=== PATIENT | female | born 1995 | race Caucasian/White ===

== ENCOUNTER 2018-09-10 15:25 | Inpatient (IN) | payer MEDICAID ==
[~2018-09-10] VITALS: Ht 157.5 cm; Wt 60.3 kg
[2018-09-10] MEDS ORDERED: LACTATED RINGERS 1,000 ML IV SCH ×2 (18:26→19:00)
[2018-09-10] MEDS ORDERED: LIDOCAINE HCL 1% 20ML VIAL (Pyxis) INJ INFIL SCH (18:30)
[2018-09-10] MEDS ORDERED: BUTORPHANOL TARTRATE 2 MG/ML VIAL IV PRN (18:30)
[2018-09-10] MEDS ORDERED: NALOXONE HCL 0.4 MG/ML 1ML VIAL IM PRN (18:30)
[2018-09-10] MEDS ORDERED: CARBOPROST TROMETHAMINE 250 MCG/ML AMPUL IM PRN (18:30)
[2018-09-10] MEDS ORDERED: METHYLERGONOVINE MALEATE 0.2 MG/ML IM PRN (18:30)
[2018-09-10] MEDS ORDERED: DEXT 5%/LR + PITOCIN 20UNITS/L 1,000 ML IV SCH (18:44)
[2018-09-10 19:40] LABS: BASOPHILS % 0.5 % (0.0-2.0); EOSINOPHILS % 0.6 % (0.0-5.0); HEMOGLOBIN. 11.5 g/dL (12.0-16.0); MEAN CORPUSCULAR HEMOGLOBIN 32.5 pg (28.0-32.0); MEAN CORPUSCULAR VOLUME 96.3 fL (81.0-99.0); MEAN PLATELET VOLUME 9.7 fl (7.4-10.4); MONOCYTES % 5.3 % (2.0-8.0); NEUTROPHILS % 75.6 % (40.0-76.0); PLATELET 252 x1000/uL (130-400); RED BLOOD CELL COUNT 3.53 mill/uL (4.2-5.4); RED CELL DISTRIBUTION WIDTH 12.9 % (11.6-14.6)
[2018-09-10 19:46] LABS: CLARITY URINE CLEAR (CLEAR); COLOR URINE YELLOW (YELLOW); KETONES URINE 3+ (NEGATIVE); LEUKOCYTE ESTERASE URINE 3+ (NEGATIVE); NITRITE URINE NEGATIVE (NEGATIVE); OCCULT BLOOD URINE 3+ (NEGATIVE); PH URINE 6.5 (4.5-8.0); PROTEIN URINE NEGATIVE (NEGATIVE); UROBILINOGEN URINE 0.2 E.U./dL (0.2-1.0)
[2018-09-10 20:06] LABS: CANNABINOID URINE SCREEN NEGATIVE (NEGATIVE); METHADONE URINE SCREEN NEGATIVE (NEGATIVE); OPIATES URINE SCREEN NEGATIVE (NEGATIVE); PHENCYCLIDINE URINE SCREEN NEGATIVE (NEGATIVE)
[2018-09-10 20:07] LABS: *AMPHETAMINES SCREEN URINE NEGATIVE (NEGATIVE); *BARBITURATES SCREEN URINE NEGATIVE (NEGATIVE); *BENZODIAZEPINES SCREEN URINE NEGATIVE (NEGATIVE); *COCAINE SCREEN URINE NEGATIVE (NEGATIVE)
[2018-09-10 20:08] LABS: INR 0.9; PARTIAL THROMBOPLASTIN TIME 31.5 sec (23.4-31.0); PROTHROMBIN TIME 9.4 sec (9.1-11.1)
[2018-09-10 20:28] LABS: HEPATITIS B SURFACE ANTIGEN NEGATIVE
[2018-09-10] MEDS ORDERED: FENTANYL CITRATE/PF 50MCG/ML 5ML VIAL ONE (20:29)
[2018-09-10] MEDS ORDERED: BUPIVACAINE HCL/NS/PF EPIDURAL 100 ML EP ONE (20:29)
[2018-09-10] MEDS ORDERED: BUPIVACAINE HCL/PF 0.25% (2.5MG/ML) 10ML ONE (20:29)
[2018-09-10] MEDS ORDERED: BUPIVACAINE HCL/NS/PF EPIDURAL 100 ML EP SCH (21:30)
[2018-09-11] MEDS ORDERED: BUPIVACAINE HCL/NS/PF EPIDURAL 100 ML EP ONE (02:53)
[2018-09-11] MEDS ORDERED: LIDOCAINE HCL/PF 2% 20MG/ML 5 ML/VIAL ONE ×2 (02:54→07:28)
[2018-09-11] MEDS ORDERED: FENTANYL CITRATE/PF 50MCG/ML 2ML VIAL ONE (02:54)
[2018-09-11] MEDS ORDERED: DEXT 5%/LR + PITOCIN 20UNITS/L 1,000 ML IV SCH (08:16)
[2018-09-11] MEDS ORDERED: BENZOCAINE/LANOLIN/ALOE VERA SPRAY TOP PRN (08:30)
[2018-09-11] MEDS ORDERED: HEMORRHOIDAL SUPP PR PRN (08:30)
[2018-09-11] MEDS ORDERED: DIPHENHYDRAMINE 25MG CAPSULE PO PRN (08:30)
[2018-09-11] MEDS ORDERED: TETANUS, DIPHTHERIA, PERTUSSIS VAC/PF 0.5ML (>7YR OLD) IM ONE (08:30)
[2018-09-11] MEDS ORDERED: IBUPROFEN 800MG TABLET PO PRN (08:30)
[2018-09-11] MEDS ORDERED: GLYCERIN/WITCH HAZEL LEAF MEDICATED PAD TOP PRN (08:30)
[2018-09-11] MEDS ORDERED: INFLUENZA VIRUS VACCINE(AFLURIA) 0.5ML SYR IM ONE (08:30)
[2018-09-11] MEDS ORDERED: ACETAMINOPHEN WITH CODEINE 300/30MG TABLET PO PRN (08:30)
[2018-09-11] MEDS ORDERED: IBUPROFEN 400MG TABLET PO PRN (08:30)
[2018-09-11] MEDS ORDERED: LANOLIN OINT 0.25 GM TUBE TOP PRN (08:30)
[2018-09-11 11:34] VITALS: BP 100/56
[2018-09-11] MEDS: PRENATAL VIT/FE FUMARATE/FA TABLET PO SCH ×2 (12:49→13:05)
[2018-09-11 18:32] VITALS: BP 115/71
[2018-09-11 20:00] VITALS: BP 101/78
[2018-09-11] MEDS: DOCUSATE SODIUM 100MG CAPSULE PO SCH (21:57)
[2018-09-12] VITALS: BP 99/72
[2018-09-12 05:25] LABS: BASOPHILS % 0.4 % (0.0-2.0); EOSINOPHILS % 1.2 % (0.0-5.0); HEMATOCRIT. 28.2 % (36.0-48.0); HEMOGLOBIN. 9.6 g/dL (12.0-16.0); LYMPHOCYTES % 19.5 % (20.0-50.0); MEAN CORPUSCULAR HEMOGLOBIN 32.8 pg (28.0-32.0); MEAN CORPUSCULAR VOLUME 96.5 fL (81.0-99.0); MEAN PLATELET VOLUME 9.1 fl (7.4-10.4); MONOCYTES % 5.5 % (2.0-8.0); NEUTROPHILS % 73.4 % (40.0-76.0); PLATELET 228 x1000/uL (130-400); RED BLOOD CELL COUNT 2.92 mill/uL (4.2-5.4); RED CELL DISTRIBUTION WIDTH 13.1 % (11.6-14.6)
[2018-09-12] MEDS: LEVOTHYROXINE SODIUM 75MCG TABLET PO SCH (07:09)
[2018-09-12 08:45] VITALS: BP 107/67
[2018-09-12] MEDS: PRENATAL VIT/FE FUMARATE/FA TABLET PO SCH (10:02)
[2018-09-12] MEDS: FERROUS SULFATE 325MG TABLET PO SCH (10:02)
[2018-09-12 16:00] VITALS: BP 97/53
[2018-09-12 20:00] VITALS: BP 102/67
[2018-09-12] MEDS: DOCUSATE SODIUM 100MG CAPSULE PO SCH (22:31)
[2018-09-13] VITALS: BP 103/65
[2018-09-13] MEDS: LEVOTHYROXINE SODIUM 75MCG TABLET PO SCH (06:55)
[2018-09-13 08:44] VITALS: BP 112/65
[2018-09-13] MEDS: PRENATAL VIT/FE FUMARATE/FA TABLET PO SCH (10:19)
[2018-09-13] MEDS: FERROUS SULFATE 325MG TABLET PO SCH (10:23)
== END 2018-09-13 11:00 | disposition home or self-care (01) | DRG 560 ==
LOC: L&D 15:25 → OBSVTOIN 15:25 → 8 EST LDRP 19:54 → 8EST 09-11 10:45
PROVIDERS: ADMIT Specialist; ATTEND Specialist
PROC: 3E0R3BZ Introduction of Anesthetic Agent into Spinal Canal, Percutaneous Approach (ICD-10-PCS; 2018-09-10)
PROC: 00HU33Z Insertion of Infusion Device into Spinal Canal, Percutaneous Approach (ICD-10-PCS; 2018-09-10)
PROC: 10E0XZZ Delivery of Products of Conception, External Approach (ICD-10-PCS; principal; 2018-09-11)
PROC: 10907ZC Drainage of Amniotic Fluid, Therapeutic from Products of Conception, Via Natural or Artificial Opening (ICD-10-PCS; 2018-09-11)
DX: O77.0 Labor and delivery complicated by meconium in amniotic fluid (principal); D64.9 Anemia, unspecified; O99.284 Endocrine, nutritional and metabolic diseases complicating childbirth; E03.9 Hypothyroidism, unspecified; O99.03 Anemia complicating the puerperium; Z3A.38 38 weeks gestation of pregnancy; Z37.0 Single live birth; Z88.0 Allergy status to penicillin
CPT/HCPCS: 36415; 80305; 86592; 86703; 86762; 86850; 86900; 87340; 99281; G0378; J0595; J2590; J3010; J3490; J7120